=== PATIENT | male | born 1985 | race African-American/Black ===

== ENCOUNTER 2017-03-11 16:49 | Emergency (ER) | payer SELFPAY ==
[~2017-03-11] VITALS: Ht 193 cm; Wt 68.0 kg
[2017-03-11 17:20] VITALS: BP 148/89
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
== END 2017-03-11 18:02 | disposition home or self-care (01) ==
LOC: ER 16:49
DX: M25.531 Pain in right wrist (principal)
CPT/HCPCS: 29125; 73110; 99284-25